=== PATIENT | female | born 1990 | race Caucasian/White ===

== ENCOUNTER 2017-09-13 09:11 | Emergency (ER) | payer OTHER, MEDICAID ==
[~2017-09-13] VITALS: Ht 160 cm; Wt 99.8 kg
[~2017-09-13 09:11] MED LIST: AMOXICILLIN250 M1 PO; AMOXICILLIN400 MG PO; BACTRIM DS TAB1 EACH PO; BENADRYL ALLE12.5 MG PO; BIRTH CONTROL; HYCET 7.5 MG-3473 ML PO; MOTION SICKNESS25 MG PO; NAPROSYN500 MG PO; NOHOMEMEDICATIONS; ORAPRED15 MG/5 M1 PO; PROTONIX 20 MG20 M1 PO; PYRIDIUM200 MG PO; TOBREX5 ML OPHTHALMIC
[2017-09-13] MEDS ORDERED: ACCUNEB SO1.25 MG/1 INH (09:22)
[2017-09-13] MEDS ORDERED: PREDNISONE 20 M20 M1 PO (09:27)
[2017-09-13] MEDS ORDERED: VENTOLIN HFA 1818 GM INH (09:27)
[2017-09-13 09:37] VITALS: BP 154/83
== END 2017-09-13 09:37 | disposition home or self-care (01) ==
LOC: M.ERS 09:11
DX: J45.901 Unspecified asthma with (acute) exacerbation (principal); F32.9 Major depressive disorder, single episode, unspecified; F17.210 Nicotine dependence, cigarettes, uncomplicated; Z88.8 Allergy status to other drugs, medicaments and biological substances

== ENCOUNTER 2019-04-23 11:05 | Emergency (ER) | payer OTHER, MEDICAID ==
[~2019-04-23] VITALS: Ht 157.5 cm; Wt 94.8 kg
[~2019-04-23 11:05] MED LIST changes: +ACCUNEB SO1.25 MG/1 INH; +PREDNISONE 20 M20 M1 PO; +VENTOLIN HFA 1818 GM INH
[2019-04-23 11:11] VITALS: BP 148/87
[2019-04-23] MEDS ORDERED: LEXAPRO20 MG PO (11:14)
[2019-04-23] MEDS ORDERED: AMOXICILLI400 MG/5 M PO (11:15)
== END 2019-04-23 11:30 | disposition home or self-care (01) ==
LOC: M.ERS 11:05
DX: T16.1XXA Foreign body in right ear, initial encounter (principal); F17.210 Nicotine dependence, cigarettes, uncomplicated; Z88.8 Allergy status to other drugs, medicaments and biological substances; X58.XXXA Exposure to other specified factors, initial encounter; Y93.89 Activity, other specified; Y92.89 Other specified places as the place of occurrence of the external cause; Y99.8 Other external cause status

== ENCOUNTER 2020-08-26 14:36 | Emergency (ER) | payer OTHER, MEDICAID ==
[~2020-08-26] VITALS: Ht 157.5 cm; Wt 86.2 kg
[~2020-08-26 14:36] MED LIST changes: +AMOXICILLI400 MG/5 M PO; +LEXAPRO20 MG PO
[2020-08-26] MEDS ORDERED: SINGULAIR 10 MG10 MG PO (14:55)
[2020-08-26] MEDS ORDERED: TESSALON PERLE100 MG PO (15:49)
[2020-08-26] MEDS ORDERED: PROAIR HFA8.5 GM INH (15:49)
[2020-08-26] MEDS ORDERED: PREDNISONE 20 M20 MG PO (15:49)
[2020-08-26 15:55] VITALS: BP 120/77
== END 2020-08-26 15:56 | disposition home or self-care (01) ==
LOC: M.ERS 14:36
DX: Z20.822 Contact with and (suspected) exposure to COVID-19 (principal); F17.210 Nicotine dependence, cigarettes, uncomplicated; Z88.8 Allergy status to other drugs, medicaments and biological substances

== ENCOUNTER 2020-11-03 00:10 | Emergency (ER) | payer OTHER, MEDICAID ==
[~2020-11-03] VITALS: Ht 160 cm; Wt 83.9 kg
[~2020-11-03 00:10] MED LIST changes: +PREDNISONE 20 M20 MG PO; +PROAIR HFA8.5 GM INH; +SINGULAIR 10 MG10 MG PO; +TESSALON PERLE100 MG PO
[2020-11-03] MEDS ORDERED: AMOXICILLI400 MG/5 M PO (01:08)
[2020-11-03 01:13] VITALS: BP 105/75
== END 2020-11-03 01:14 | disposition home or self-care (01) ==
LOC: M.ERS 00:10
DX: U07.1 COVID-19 (principal); J02.0 Streptococcal pharyngitis; F32.9 Major depressive disorder, single episode, unspecified; F17.210 Nicotine dependence, cigarettes, uncomplicated; Z79.899 Other long term (current) drug therapy; Z88.8 Allergy status to other drugs, medicaments and biological substances